=== PATIENT | male | born 1945 | race Two or more races ===

== ENCOUNTER 2018-03-28 09:07 | Outpatient (CLI) | payer OTHER ==
[~2018-03-28] VITALS: Ht 160 cm; Wt 65.8 kg
== END 2018-03-28 09:20 | disposition home or self-care (01) ==
LOC: OFIC 805 09:07
DX: H60.8X2 Other otitis externa, left ear (principal); H61.23 Impacted cerumen, bilateral

== ENCOUNTER 2018-11-07 14:25 | Outpatient (CLI) | payer OTHER | END 2018-11-07 14:27 | disposition home or self-care (01) | LOC: SONOGRAMA 14:25 | DX: E04.2 Nontoxic multinodular goiter (principal); E04.0 Nontoxic diffuse goiter ==

== ENCOUNTER 2022-07-01 07:32 | Outpatient (CLI) | payer OTHER | END 2022-07-01 07:41 | disposition home or self-care (01) | LOC: SONOGRAMA 07:32 | PROVIDERS: ATTEND Internal Medicine Gastroenterology | DX: R10.9 Unspecified abdominal pain (principal); R07.9 Chest pain, unspecified ==

== ENCOUNTER 2022-11-16 10:32 | Outpatient (CLI) | payer OTHER | END 2022-11-16 10:34 | disposition home or self-care (01) | LOC: NUCLEAR 10:32 | PROVIDERS: ATTEND Psychiatry & Neurology Clinical Neurophysiology | DX: I73.9 Peripheral vascular disease, unspecified (principal) ==